=== PATIENT | female | born 2000 | race Caucasian/White ===

== ENCOUNTER 2024-08-29 12:42 | Outpatient (CLI) | payer BC, OTHER ==
[2024-08-29 14:06] LABS: Basophils # (A) 0.1 k/uL (0-0.2); Basophils % (A) 0 %; Eosinophils # (A) 0.2 k/uL (0-0.7); Eosinophils % (A) 1 %; HCT 29.8 % (34.0-46.0); HGB 9.3 gm/dL (11.4-16.0); Hypochromasia Moderate; Lymphocytes # (A) 2.3 k/uL (1.0-4.8); Lymphocytes % (A) 18 %; MCH 23.2 pg (25.0-35.0); MCHC 31.3 g/dL (31.0-37.0); MCV 74.1 fL (80.0-100.0); Mean Platelet Volume 7.4; Microcytosis Slight; Monocytes # (A) 0.5 k/uL (0-1.0); Monocytes % (A) 4 %; Neutrophils % (A) 75 %; Platelet Count 371 k/uL (150-450); Poikilocytosis Slight; RBC 4.02 m/uL (3.80-5.40); RDW 14.7 % (11.5-15.5); WBC 13.3 k/uL (3.8-10.6)
[2024-08-29 14:11] LABS: Appearance,Urine Cloudy (Clear); Bilirubin,Urine Negative (Negative); Blood,Urine Small (Negative); Color,Urine Yellow; Glucose,Urine (UA) Negative (Negative); Ketones,Urine Negative (Negative); Leukocyte Esterase,Urine Negative (Negative); Mucus,Urine Few /hpf; Nitrite,Urine Negative (Negative); Protein,Urine 2+ (Negative); RBC,Urine 1 /hpf (0-5); Specific Gravity,Urine 1.026 (1.001-1.035); Squamous Epithelial Cell,Urine 6 /hpf (0-4); Urobilinogen,Urine <2.0 mg/dL (<2.0); WBC,Urine 4 /hpf (0-5)
[2024-08-29 14:13] LABS: INR 0.8 (<1.2); Prothrombin Time 9.6 sec (10.0-12.5)
[2024-08-29 14:17] LABS: ALT 16 U/L (4-34); AST 22 U/L (14-36); African American GFR (CKD) >90 (>60 ml/min/1.73 sqM); Blood Urea Nitrogen 8 mg/dL (7-17); LDH 226 U/L (120-246); Magnesium 1.7 mg/dL (1.6-2.3); Non-African American GFR(CKD) >90 (>60 ml/min/1.73 sqM); Uric Acid 5.4 mg/dL (3.7-7.4)
[2024-08-29 14:19] LABS: Creatinine,Urine Random 243.3 mg/dL
[2024-08-29 14:21] LABS: Partial Thromboplastin Time 21.4 sec (22.0-30.0)
[2024-08-29 14:26] LABS: Protein/Creatinine Ratio,Urine 1.85
[2024-08-29 14:55] VITALS: BP 159/87; PULSE 90; RESP 18; TEMP 99
--- NOTE | 2024-09-06 16:01 | P.MSEPDOC ---
Presenting Problems - Arrival Data Date of Arrival on Unit: 08/29/24 Time of Arrival on Unit: 12:42 Mode of Transport: Ambulatory - Complaint OB-Reason for Admission/Chief Complaint: Rule Out SROM, PIH Medical History - Information : 1 Para: 0 Term: 0 : 0 Abortions: Spontaneous or Elective: 0 Number of Living Children: 0 - Gestational Age Gestational Age by FANNY (wks/days): 36 Weeks and 6 Days Review of Systems - Review of Systems Constitutional: No problems Breast: No problems ENT: No problems Cardiovascular: No problems Respiratory: No problems Gastrointestinal: No problems Genitourinary: No problems Musculoskeletal: No problems Neurological: No problems Skin: No problems Vital Signs - Temperature Temperature: 99.0 F Temperature Source: Temporal Artery Scan - Pulse Pulse Oximetery Pulse Rate: 90 Pulse Assessment Method: Pulse Oximetry - Respirations Respiratory Rate: 18 Oxygen Delivery Method: Room Air O2 Sat by Pulse Oximetry: 97 - Blood Pressure Right Arm Blood Pressure: 159/87 Blood Pressure Mean: 111 Blood Pressure Source: Automatic Cuff Medical Screen Scoring - Cervical Exam Membranes: Intact - Uterine Contractions Resting: Soft to palpation - Assessment - Baby A Baseline FHR: 125 Heart Rate - NICHD Category: Category I (Normal) NST: Reactive Physician Notification - Physician Notified Physician Notified Date: 08/29/24 Physician Notified Time: 14:32 Physician: Malgorzata Snow New Order Received: Yes (d/c home with home bp monitoring and IOL for Monday.) Maternal Triage Index - Maternal Triage Index Presenting for scheduled procedure w/no complaint: No - Stat/Priority 1 Stat Priority 1: No - Urgent/Priority 2 Urgent Priority 2: Yes Provider Notified: Malgorzata Snow Provider Notified Time: 14:19 Criteria Met for Priority 2: initial bp 159/87, reporting to triage from office with written orders for PIH workup. Disposition - Disposition OB Disposition: Discharge to home Discharge Date: 08/29/24 Discharge Time: 14:38 I agree with the RN Medical Screening Exam: Yes Physician's MSE Comment: I have neither seen nor examined the patient Case reviewed; plan agreed upon as documented in EMR&OBIX.: Yes Diagnosis: GESTATIONAL HTN W/O SIGNIFICANT PROTEINURIA, THIRD TRIMESTER
== END 2024-08-29 14:38 | disposition home or self-care (01) ==
LOC: FBPOP 12:42
PROVIDERS: ATTEND Obstetrics & Gynecology
DX: O13.3 Gestational [pregnancy-induced] hypertension without significant proteinuria, third trimester (principal); Z3A.36 36 weeks gestation of pregnancy
CPT/HCPCS: 59025; 81001; 82565; 82570; 83615; 83735; 84112; 84156; 84450; 84460; 84520; 84550; 85025; 85384; 85610; 85730; 99215

== ENCOUNTER 2024-09-02 06:01 | Inpatient (IN) | payer BC, OTHER ==
[2024-09-02] MEDS ORDERED: miSOPROStoL 200 MCG TAB RECTAL PRN (06:11)
[2024-09-02] MEDS ORDERED: METHYLERGONOVINE 0.2 MG/ML 1 ML AMP IM PRN (06:11)
[2024-09-02] MEDS ORDERED: TRANEXAMIC 1,000 MG/100ML-NACL 1,000 MG in EMPTY BAG 1 BAG IV PRN (06:11)
[2024-09-02] MEDS ORDERED: CARBOPROST TROMETHAMINE 250 MCG/ML 1 ML AMP IM PRN (06:11)
[2024-09-02] MEDS ORDERED: miSOPROStoL 200 MCG TAB PO PRN (06:11)
[2024-09-02] MEDS ORDERED: OXYTOCIN 10 UNIT/ML 1 ML VIAL IM PRN (06:11)
[2024-09-02] MEDS ORDERED: TERBUTALINE 1 MG/ML VIAL SQ PRN (06:11)
[2024-09-02] MEDS ORDERED: LIDOCAINE 0.5% (PF) 5 MG/ML (50 ML SDV) SQ PRN (06:11)
[2024-09-02 07:31] LABS: Basophils # (A) 0.1 k/uL (0-0.2); Basophils % (A) 0 %; Eosinophils # (A) 0.2 k/uL (0-0.7); Eosinophils % (A) 2 %; HCT 30.4 % (34.0-46.0); HGB 9.7 gm/dL (11.4-16.0); Hypochromasia Moderate; Lymphocytes # (A) 2.7 k/uL (1.0-4.8); Lymphocytes % (A) 22 %; MCH 23.5 pg (25.0-35.0); MCHC 31.8 g/dL (31.0-37.0); MCV 73.8 fL (80.0-100.0); Mean Platelet Volume 7.5; Microcytosis Slight; Monocytes # (A) 0.4 k/uL (0-1.0); Monocytes % (A) 3 %; Neutrophils # (A) 8.9 k/uL (1.3-7.7); Neutrophils % (A) 72 %; Platelet Count 365 k/uL (150-450); Poikilocytosis Slight; RBC 4.12 m/uL (3.80-5.40); RDW 14.9 % (11.5-15.5); WBC 12.4 k/uL (3.8-10.6)
[2024-09-02] MEDS: LACTATED RINGERS 1,000 ML IV SCH ×2 (07:39→16:19)
[2024-09-02 08:58] LABS: ALT 17 U/L (4-34); AST 27 U/L (14-36); African American GFR (CKD) >90 (>60 ml/min/1.73 sqM); Blood Urea Nitrogen 9 mg/dL (7-17); LDH 244 U/L (120-246); Non-African American GFR(CKD) >90 (>60 ml/min/1.73 sqM); Uric Acid 5.9 mg/dL (3.7-7.4)
[2024-09-02 09:03] LABS: INR 0.8 (<1.2); Prothrombin Time 9.6 sec (10.0-12.5)
[2024-09-02 09:07] LABS: Partial Thromboplastin Time 21.8 sec (22.0-30.0)
[2024-09-02] MEDS: OXYTOCIN 30 UNITS/500 ML NS 30 UNIT in SALINE 1 500ML.BAG IV SCH (09:14)
--- NOTE | 2024-09-02 09:17 | P.HPOB ---
History of Present Illness H&P Date: 09/02/24 Chief Complaint: Medical induction of labor Ms. Quan is a 24 year old at 37 weeks and 3 days by LMP consistent with 13 week US giving her an FANNY of 09/20/2024 who presents for medical induction of labor for pre-eclampsia without severe features and severe IUGR with AC <1%ile. The fetus has undergone surveillance, which has been reassuring with normal umbilical artery dopplers. The patient did have a chlamydia infection earlier in August that was positive again on test of cure in the office on 08/29/24. She will receive oral Azithromycin treatment today and we will offer her partner expedited treatment. She did have PIH labs done on 08/29 which were significant for proteinuria on the urine P:C. work-up: blood type O positive, antibody screen negative, rubella immune, VDRL non-reactive, HBsAg negative, HIV negative, HCV Ab non-reactive, gonorrhea negative, 1 hour GTT wnl, GBS pending. Past Medical History Additional Past Medical History / Comment(s): pre-e History of Any Multi-Drug Resistant Organisms: None Reported Past Surgical History: No Surgical Hx Reported Additional Past Surgical History / Comment(s): wisdom teeth Past Anesthesia/Blood Transfusion Reactions: No Reported Reaction Past Psychological History: No Psychological Hx Reported Smoking Status: Former smoker, Vaper Additional Past Alcohol Use History / Comment(s): none since she found out she was Past Drug Use History: Marijuana Additional Drug Use History / Comment(s): quite with - Past Family History Mother Family Medical History: No Reported History Medications and Allergies Home Medications Medication Instructions Recorded Confirmed Type Vit No.179/Iron/Folic 1 each PO DAILY 09/02/24 09/02/24 History [ Tablet] Allergies Allergy/AdvReac Type Severity Reaction Status Date / Time No Known Allergies Allergy Verified 09/02/24 06:10 Exam Vital Signs Temp Pulse Resp BP Pulse Ox 09/02/24 06:34 98.1 F 83 18 170/114 95 Intake and Output 09/01/24 09/02/24 09/02/24 22:59 06:59 14:59 Other: Weight 113.398 kg Focused physical exam is performed. This is a healthy-appearing in no apparent distress. Breathing is non-labored. Abdomen is gravid and non-tender. Cervical exam is fingertip/long/high. A sterile speculum is used to place a cooks catheter with 60cc of sterile saline in each balloon. heart tones are reactive and reassuring on NST. Results Result Diagrams: 09/02/24 07:20 09/02/24 07:20 Abnormal Lab Results - Last 24 Hours (Table) 09/02/24 09/02/24 Range/Units 07:20 07:20 WBC 12.4 H (3.8-10.6) k/uL Hgb 9.7 L (11.4-16.0) gm/dL Hct 30.4 L (34.0-46.0) % MCV 73.8 L (80.0-100.0) fL MCH 23.5 L (25.0-35.0) pg Neutrophils # 8.9 H (1.3-7.7) k/uL PT 9.6 L (10.0-12.5) sec APTT 21.8 L (22.0-30.0) sec Fibrinogen 648 H (200-500) mg/dL Assessment and Plan Assessment: 24 year old at 37 weeks and 3 days being medically induced for pre- eclampsia without severe features and severe IUGR Plan: Admit, clear liquid diet, cooks catheter x6-12 hours with low-dose pitocin, PO Azithromycin for chlamyida, Pen G for GBS unknown (decided by patient after counseling). Continuous EFM and tocometer.
[2024-09-02 09:38] LABS: Appearance,Urine Cloudy (Clear); Bilirubin,Urine Negative (Negative); Blood,Urine Small (Negative); Color,Urine Yellow; Glucose,Urine (UA) Negative (Negative); Hyaline Casts,Urine 4 /lpf (0-2); Ketones,Urine Negative (Negative); Leukocyte Esterase,Urine Negative (Negative); Mucus,Urine Few /hpf; Nitrite,Urine Negative (Negative); Protein,Urine 3+ (Negative); RBC,Urine <1 /hpf (0-5); Specific Gravity,Urine 1.023 (1.001-1.035); Squamous Epithelial Cell,Urine 4 /hpf (0-4); Urobilinogen,Urine <2.0 mg/dL (<2.0); WBC,Urine 5 /hpf (0-5)
[2024-09-02 09:51] LABS: Creatinine,Urine Random 187.3 mg/dL
[2024-09-02] MEDS: AZITHROMYCIN 500 MG TAB PO STA (09:51)
[2024-09-02] MEDS: PENICILLIN G POTASSIUM 5,000,000 UNIT in DEXTROSE 5% IN WATER 100 ML IVPB STA (09:51)
[2024-09-02] MEDS: NALBUPHINE 10 MG/ML (10 ML MDV) IV PRN (11:27)
[2024-09-02] MEDS: PENICILLIN G POTASSIUM 2,500,000 UNIT in DEXTROSE 5% IN WATER 100 ML IVPB SCH (14:02)
[2024-09-02] MEDS: LABETALOL 5 MG/ML VIAL MDV IVP STA (16:03)
[2024-09-02] MEDS: MAGNESIUM SULFATE GM 6 GM in SODIUM CHLORIDE 0.9% 100 ML IVPB ONE (16:19)
[2024-09-02] MEDS: MAGNESIUM SULFATE-WATER PMX 20 GM in WATER FOR INJECTION 1 500ML.BAG IV SCH (16:39)
[2024-09-02] MEDS ORDERED: hydrALAZINE HCL 20 MG/ML 1 ML VIAL IVP PRN (17:47)
[2024-09-02] MEDS ORDERED: LABETALOL 5 MG/ML VIAL MDV IVP PRN ×3 (17:47)
[2024-09-03] MEDS: LABETALOL 5 MG/ML VIAL MDV IVP STA (01:20)
[2024-09-03] MEDS ORDERED: SODIUM CHLORIDE 0.9% 250 ML BAG ONE (03:03)
[2024-09-03] MEDS ORDERED: ROPIVACAINE 5 MG/ML 30 ML VIAL ONE (03:03)
[2024-09-03] MEDS ORDERED: fentaNYL (PF) 50 MCG/ML 5 ML AMP ONE (03:03)
[2024-09-03] MEDS ORDERED: OXYTOCIN 10 UNIT/ML 1 ML VIAL IM PRN (07:39)
[2024-09-03] MEDS ORDERED: TRANEXAMIC 1,000 MG/100ML-NACL 1,000 MG in EMPTY BAG 1 BAG IV PRN (07:39)
[2024-09-03] MEDS ORDERED: CARBOPROST TROMETHAMINE 250 MCG/ML 1 ML AMP IM PRN (07:39)
[2024-09-03] MEDS ORDERED: miSOPROStoL 200 MCG TAB PO PRN (07:39)
[2024-09-03] MEDS ORDERED: METHYLERGONOVINE 0.2 MG/ML 1 ML AMP IM PRN (07:39)
[2024-09-03] MEDS: CITRIC ACID-SODIUM CITRATE 15 ML CUP PO ONE (07:45)
[2024-09-03] MEDS ORDERED: fentaNYL (PF) 50 MCG/ML 2 ML AMP ONE (08:04)
[2024-09-03] MEDS ORDERED: KETOROLAC 15 MG/ML 1 ML VIAL ONE (08:04)
[2024-09-03] MEDS ORDERED: OXYTOCIN 10 UNIT/ML 1 ML VIAL ONE (08:04)
[2024-09-03] MEDS ORDERED: NALBUPHINE (ANES) 10 MG/ML - 1 ML AMP ONE (08:04)
[2024-09-03] MEDS ORDERED: ONDANSETRON 4 MG/2 ML VIAL ONE (08:04)
[2024-09-03] MEDS ORDERED: MORPHINE SULFATE (PF) 0.3 MG/0.3 ML SYR ONE (08:04)
--- NOTE | 2024-09-03 09:13 | P.OP ---
Date of Procedure: 09/03/24 Preoperative Diagnosis: 1. Term IUP at 37 weeks 2. Pre-eclampsia with severe features 3. Severe IUGR 4. Failed induction Postoperative Diagnosis: Same Procedure(s) Performed: Primary Lower Transverse Section Implants: None Anesthesia: epidural Surgeon: Malgorzata Snow Marketing Copywriter #1: Edilia Mcdonough Estimated Blood Loss (ml): 500 IV fluids (ml): 800 Urine output (ml): 100 (clear yellow) Pathology: other (placenta) Condition: stable Disposition: floor Indications for Procedure: Ms. Quan is a 24 year old at 37 weeks gestation presenting for induction of labor for IUGR and pre-eclampsia without severe features. A cooks catheter was inserted and left in situ for approximately 8 hours. During induction, the pre-eclampsia did progress to severe features and magnesium sulfate was started. After the cooks catheter came out, the patient was 5/70/-3. AROM was undertaken noting clear amniotic fluid. She made a small amount of cervical change to 5/100/0. However, she failed to have any progress in dilation after this point despite adequate contractions with oxytocin and rupture of membranes for 15 hours. section was recommended for maternal and well-being. The risks, benefits, and alternatives to section were discussed with the patient including risk of bleeding, infection, damage to surrounding structures including bladder/bowels/ureters, and post-operative VTE. The patient understands these risks and desires to proceed with section. Operative Findings: Clear amniotic fluid. Viable male in cephalic presentation. Apgars 9/9. Weight 4#14 ounces (2210 grams). Normal uterus, bilateral fallopian tubes, and ovaries. Description of Procedure: The patient was taken back to the operating room where spinal anesthesia was found to be adequate. Two grams of Ancef were given for infection prophylaxis. Vaginal preparation was done. She was prepared and draped in the dorsal supine position with a leftward tilt. A Pfannenstiel skin incision was made with the scalpel. The incision was carried down to the fascia with a bovie. The fascia was incised and extended laterally with Mendoza scissors. The superior aspect of the fascia was grasped with the Gino clamps. The underlying rectus muscle was dissected off sharply with Mendoza scissors. In a similar fashion, the inferior aspect of the fascia was elevated with Gino clamps and the rectus muscle and pyramidalis were dissected off. Excellent hemostasis was achieved with the bovie. The rectus muscle was in the midline down to the level of the pubic symphysis. Pre-peritoneal fatty tissue was bluntly dissected to expose the peritoneum. The peritoneum was found to be free of adherent bowel and entered sharply with Mendoza scissors. The peritoneal incision was extended superiorly and inferiorly to the bladder reflection with good visualization of the bladder. The bladder blade was inserted and vesicouterine peritoneum was identified. Intraabdominal survey revealed scant, clear peritoneal fluid and the thinned-out lower uterine segment. The vesicouterine peritoneum was opened with scissors and the bladder flap was developed. The bladder blade was repositioned to keep the bladder out of the operative field. The lower uterine segment was incised with a scalpel. Clear amniotic fluid was noted. The uterine incision was extended bluntly with lateral and upward traction. The fetus was in cephalic presentation. The head was elevated out of the pelvis with special attention paid to avoid using the uterine incision as a fulcrum. Gentle fundal pressure was applied once the head was brought into the incision. The infant was delivered with no difficulty and was noted to be crying spontaneously. The mouth and nose were suctioned with a bulb. The cord was clamped and cut. The was handed off to the chiller operator. IV oxytocin was initiated to facilitate uterine contractions. The placenta was delivered intact with manual massage of uterine fundus. The uterus was then exteriorized and the inside of the uterus was gently wiped with a lap sponge to assure complete removal of placental membranes. The uterine incision was closed with 0-Vicryl suture in a running locked fashion. A second imbricating layer was placed with 0-Vicryl. The ovaries and tubes were found to be normal. The uterus, tubes, and ovaries were then gently returned to the abdominal cavity. The abdomen was copiously suction irrigated. The uterine incision was reinspected and excellent hemostasis was noted. The fascial layer was closed with a 0-Vicryl suture. The subcutaneous tissue was reapproximated with 2-0 Plain Gut. Surgicel powder was used in the subcutaneous layer for bleeding. The skin was closed with 4-0 Monocryl in a subcuticular fashion.The patient tolerated the procedure well. All the counts were correct times two. The patient was taken to the recovery room in a stable condition. A physician land surveyor assistant was utilized for the entire procedure due to the need for tissue retraction, dissection of vital structures, prevention and management of blood loss, and reduction in overall operative and anesthesia time as is the standard of care.
[2024-09-03] MEDS ORDERED: NALOXONE 0.4 MG/ML 1 ML VIAL IV PRN (11:08)
[2024-09-03] MEDS ORDERED: METOCLOPRAMIDE 5 MG/ML 2 ML VIAL IVP PRN (11:08)
[2024-09-03] MEDS ORDERED: ONDANSETRON 4 MG/2 ML VIAL IVP PRN (11:08)
[2024-09-03] MEDS ORDERED: ZOLPIDEM 5 MG TAB PO PRN (11:08)
[2024-09-03] MEDS ORDERED: diphenhydrAMINE 25 MG CAP PO PRN (11:08)
[2024-09-03] MEDS ORDERED: diphenhydrAMINE 50 MG/ML 1 ML VIAL IVP PRN ×2 (11:08)
[2024-09-03] MEDS ORDERED: diphenhydrAMINE 50 MG CAP PO PRN (11:08)
[2024-09-03] MEDS: ACETAMINOPHEN TAB 500 MG TAB PO SCH (12:12)
[2024-09-03] MEDS: KETOROLAC 15 MG/ML 1 ML VIAL IVP SCH (16:40)
[2024-09-03] MEDS: SENNOSIDES-DOCUSATE SODIUM 1 EACH TAB PO SCH (21:46)
[2024-09-04] MEDS: LACTATED RINGERS 1,000 ML IV SCH (04:48)
--- NOTE | 2024-09-04 05:32 | P.PN ---
Progress Note - Text Progress Note Date: 09/04/24 24 yo female s/p with epidural administered duramorph Overall doing well VSS Mild pruritis VAS 3-4/10 in severity Ambulating Tolerating diet Patient ok for discharge from anesthetic standpoint
[2024-09-04 07:33] LABS: Basophils # (A) 0.1 k/uL (0-0.2); Basophils % (A) 0 %; Eosinophils # (A) 0.1 k/uL (0-0.7); Eosinophils % (A) 1 %; HCT 23.9 % (34.0-46.0); HGB 7.7 gm/dL (11.4-16.0); Hypochromasia Moderate; Lymphocytes # (A) 2.6 k/uL (1.0-4.8); Lymphocytes % (A) 19 %; MCH 23.9 pg (25.0-35.0); MCHC 32.3 g/dL (31.0-37.0); MCV 73.8 fL (80.0-100.0); Microcytosis Slight; Monocytes # (A) 0.6 k/uL (0-1.0); Monocytes % (A) 5 %; Neutrophils # (A) 9.8 k/uL (1.3-7.7); Neutrophils % (A) 74 %; Platelet Count 337 k/uL (150-450); RBC 3.24 m/uL (3.80-5.40); RDW 15.4 % (11.5-15.5); WBC 13.3 k/uL (3.8-10.6)
--- NOTE | 2024-09-04 08:29 | P.PNOBGPC ---
Subjective - Subjective Principal diagnosis: s/p primary section Interval history: The patient is doing well this morning and had no acute events overnight. She has no complaints this morning. She reports minimal lochia, passing flatus, and eating/drinking without nausea or vomiting. Mag Suflate is now off. Catheter will come out this morning. She is breast-feeding her without difficulty. She denies chest pain, shortness of breathing, fevers, or chills overnight. She denies pain or swelling in the legs. She denies headache, visual disturbances, and RUQ pain. Patient reports: Reports appetite normal, Reports voiding normally, Reports pain well controlled, Reports ambulating normally [place]: doing well, nursing well Objective - Vital Signs Latest vital signs: Vital Signs Temp Pulse Resp BP BP Pulse Ox 09/04/24 08:02 88 149/88 09/04/24 06:00 98.0 F 88 16 145/82 09/04/24 05:00 95 16 142/76 09/04/24 04:00 93 16 137/79 09/04/24 03:00 84 16 144/89 09/04/24 02:00 88 16 123/69 09/04/24 01:00 100 16 126/71 09/04/24 00:00 98.2 F 100 16 132/77 09/03/24 23:00 108 H 16 131/71 98 09/03/24 22:00 98.8 F 100 16 142/79 97 09/03/24 21:00 100 16 138/73 97 09/03/24 20:00 98.0 F 100 16 147/85 97 09/03/24 18:53 93 16 138/85 96 09/03/24 18:00 89 16 136/80 97 09/03/24 17:43 88 16 133/76 96 09/03/24 17:13 97.8 F 95 16 125/71 97 09/03/24 17:12 93 16 126/68 97 09/03/24 14:00 89 16 136/80 97 09/03/24 13:12 99 17 139/80 97 09/03/24 12:00 97.3 F L 102 H 16 143/83 95 09/03/24 11:12 97.4 F L 100 18 150/77 94 L 09/03/24 10:57 101 H 17 148/80 95 09/03/24 10:42 101 H 17 148/80 95 09/03/24 10:27 111 H 17 147/92 94 L 09/03/24 10:12 105 H 17 160/85 94 L 09/03/24 09:57 102 H 17 148/81 95 09/03/24 09:42 102 H 17 162/88 97 09/03/24 09:27 104 H 17 155/85 97 09/03/24 09:12 98.3 F 101 H 17 155/86 97 Intake and Output 09/03/24 09/04/24 09/04/24 22:59 06:59 14:59 Intake Total 900 Output Total 825 900 400 Balance -825 0 -400 Intake: Intake, IV Titration 500 Amount Magnesium Sulfate-Water 500 Pmx 20 gm In Water For Injection 1 500ml.bag @ 2 GM/HR 50 mls/hr IV .Q10H MELANY Rx#:[id number] Oral 400 Output: Urine 825 900 400 Other: Voiding Method Indwelling Catheter - Exam Extremities: Present: normal Abdomen: Present: normal appearance Incision: Present: normal, dry, intact Uterus: Present: normal, firm - Labs Labs: Abnormal Lab Results - Last 24 Hours (Table) 09/04/24 Range/Units 06:20 WBC 13.3 H (3.8-10.6) k/uL RBC 3.24 L (3.80-5.40) m/uL Hgb 7.7 L D (11.4-16.0) gm/dL Hct 23.9 L (34.0-46.0) % MCV 73.8 L (80.0-100.0) fL MCH 23.9 L (25.0-35.0) pg Neutrophils # 9.8 H (1.3-7.7) k/uL Assessment and Plan Assessment: 24 year old now POD#1 s/p primary for failed induction Plan: 1. Post-op. Patient meeting post-operative milestones appropriately. Await spontaneous void today. 2. Pre-E with severe features. s/p 24 hours PP Mag Sulfate. Monitor BPs today. Mild range overnight. 3. Viable male at bedside. Doing well, will need circumcision prior to discharge. Dispo: Anticipate discharge home on POD#3 or #4
[2024-09-04] MEDS: IBUPROFEN 800 MG TAB PO SCH (09:09)
--- NOTE | 2024-09-05 08:15 | P.PNOBGPC ---
Subjective - Subjective Principal diagnosis: s/p primary section Interval history: The patient is doing well this morning. She did have a severe range blood pressure this morning. She denies headache, visual changes, and RUQ pain. She has no complaints this morning. She reports minimal lochia, passing flatus, voiding without difficulty, ambulating, and eating/drinking without nausea or vomiting. She is her without difficulty. She denies chest pain, shortness of breathing, fevers, or chills overnight. She denies pain or swelling in the legs. Patient reports: Reports appetite normal, Reports voiding normally, Reports pain well controlled, Reports ambulating normally : doing well Objective - Vital Signs Latest vital signs: Vital Signs Temp Pulse Resp BP BP Pulse Ox 09/05/24 08:00 98.2 F 83 16 162/110 97 09/04/24 23:52 98.1 F 96 16 143/88 97 09/04/24 20:15 98.4 F 99 16 145/91 97 09/04/24 15:39 97.9 F 90 16 147/93 09/04/24 11:55 98.4 F 76 16 141/98 09/04/24 08:24 92 16 152/92 Intake and Output 09/04/24 09/05/24 09/05/24 22:59 06:59 14:59 Other: # Voids 1 2 - Exam Extremities: Present: normal Abdomen: Present: normal appearance, soft Incision: Present: normal, dry, intact Uterus: Present: normal, firm Assessment and Plan Assessment: 24 year old now POD#2 s/p primary for failed induction Plan: 1. Post-op. Patient meeting post-operative milestones appropriately. Await spontaneous void today. 2. Pre-E with severe features. s/p 24 hours PP Mag Sulfate. BPs mild to severe range overnight. Begin Procardia XL 30mg daily this morning. 3. Viable male infant at bedside. Doing well, will need circumcision prior to discharge. Dispo: Anticipate discharge home on POD#3 or #4
[2024-09-05] MEDS: NIFEdipine XL 30 MG TAB.ER.24 PO SCH (09:01)
[2024-09-05] MEDS: FERROUS SULFATE 325 MG TAB PO SCH (12:06)
[2024-09-05] MEDS: LABETALOL 200 MG TAB PO SCH (13:40)
[2024-09-06 08:54] VITALS: TEMP 98.1
--- NOTE | 2024-09-06 15:38 | P.DS ---
Providers Date of admission: 09/02/24 06:01 Expected date of discharge: 09/06/24 Attending physician: Malgorzata Snow MD Primary care physician: Stated None Hospital Course: Ms. Quan is a 24 year old now POD#3 s/p 1LTCS for failed induction of labor with an IUGR fetus at 37 weeks and pre-eclampsia with severe features. Her was uncomplicated, for further details please refer to the operative report. The patient did receive intrapartum and Magensium Sulfate for seizure prophylaxis. The patient did ultimately require PO antihypertensives and is currently stable on a regimen of Procardia XL 30mg da pam and Labetalol 200mg BID. She is asymptomatic and denies headache, visual changes, or RUQ pain. The patient is doing well this morning and had no acute events overnight. She has no complaints this morning. She reports minimal lochia, passing flatus, voiding without difficulty, ambulating, and eating/drinking without nausea or vomiting. Infant doing well at bedside, s/p circumcision. She denies chest pain, shortness of breathing, fevers, or chills overnight. She denies pain or swelling in the legs. Postoperative restrictions are reviewed with the patient including pelvic rest for 6 weeks, no lifting heavier than 15 pounds for 6 weeks. The patient is encouraged to call the office if she experiences any heavy bleeding, foul-smelling discharge, breast complaints, or any if she has any other concerns. She will follow up in the office with in 1 week for blood pressure check. All questions are answered. Patient Condition at Discharge: Good Plan - Discharge Summary New Discharge Prescriptions: New Acetaminophen Tab [Tylenol] 650 mg PO Q6H PRN #30 tab PRN Reason: Mild Pain (Scale 1 To 3) NIFEdipine XL [Procardia Xl] 30 mg PO DAILY #90 tab Ibuprofen [Motrin] 600 mg PO Q6HR PRN #30 tab PRN Reason: Mild Pain (Scale 1 To 3) Labetalol [Trandate] 200 mg PO BID #180 tablet No Action Vit No.179/Iron/Folic [ Tablet] 1 each PO DAILY Discharge Medication List Vit No.179/Iron/Folic [ Tablet] 1 each PO DAILY 09/02/24 [History] Acetaminophen Tab [Tylenol] 650 mg PO Q6H PRN #30 tab 09/06/24 [Rx] Ibuprofen [Motrin] 600 mg PO Q6HR PRN #30 tab 09/06/24 [Rx] Labetalol [Trandate] 200 mg PO BID #180 tablet 09/06/24 [Rx] NIFEdipine XL [Procardia Xl] 30 mg PO DAILY #90 tab 09/06/24 [Rx] Follow up Appointment(s)/Referral(s): Malgorzata Snow MD [STAFF PHYSICIAN] - 10/14/24 1:45 pm (Blood pressure check in 1 week C/S Appointment 09-12-2024 at 10am) Activity/Diet/Wound Care/Special Instructions: Instructions 1. Do not begin any exercise program for 3 weeks. 2. Do not resume sexual relations for 6 weeks or longer if uncomfortable. 3. You may take tub baths or showers at any time. 4. You may use tampons if desired after 6 weeks. 5. Keep any areas repaired with stitches clean and dry. 6. If you are not nursing, wear a good fitting, supportive bra during the day and limit fluid intake for at least 1 week to prevent breast engorgement. 7. Call the office, , within the next week to make appointment for your 6 week checkup if it has not already been made. 8. Report any of the following occurrences to the doctor promptly: a. Heavy, excessive bleeding b. Chills, fever c. Burning or frequency of urination d. Pain or redness and breasts if nursing e. Increasing pain or swelling of vulva (stitches). In addition to the above instructions, the following additional should be followed: 1. No heavy lifting or straining (exercising) until after 6 week checkup. 2. Keep abdominal incision clean and dry: You may wear a dressing if more comfortable. 3. Make office appointment for 2 weeks after delivery date. Discharge Disposition: HOME SELF-CARE
[2024-09-06 17:53] VITALS: BP 142/91; PULSE 78; RESP 18
--- NOTE | 2024-09-09 12:51 | CDI ---
Documentation Clarification Form Date: 09/09/2024 12:29:00 PM From: Marsha Brady Phone: Admit Date: 09/02/2024 06:01:00 AM Patient Name: Mercedes Quan Visit Number: [id number] Discharge Date: 09/06/2024 05:00:00 PM ATTENTION: The Clinical Documentation Specialists (CDI) and [facility] Coding Staff appreciate your assistance in clarifying documentation. Please respond to the clarification below the line at the bottom and electronically sign. The CDI & [facility] Coding staff will review the response and follow-up if needed. Please note: Queries are made part of the Legal Health Record. If you have any questions, please contact the author of this message via ITS. Doctor/Provider: Malgorzata Snow There is conflicting documentation: Pre-eclampsia withoutsevere features per H&P and PRx Note 09/03 Pre-eclampsia with severe features per Procedure Note 09/03 and DCS 09/06 Clarification is requested. History/Risk Factors: 24yo F, Pre-eclampsia @ 37wks, severe IUGR with AC <1%, failed induction, former smoker Clinical Indicators: Pt deniesheadache,visual disturbances, painorswelling in the legs, orRUQ pain. BP: 09/02 06:64 170/114 09/04/2507:02 149/88 09/04/2505:00 145/82 09/04/2504:00 142/76 09/04/2503:00 137/79 09/04/2502:00 144/89 09/04/2501:00 123/69 09/04/2500:00 126/71 09/04/2499:00 132/77 09/03/2522:00 131/71 09/03/2521:00 142/79 09/03/2520:00 138/73 09/03/2519:00 147/85 09/03/2517:53 138/85 09/03/2517:00 136/80 09/03/2516:43 133/76 09/03/2516:13 125/71 09/03/2516:12 126/68 09/03/2513:00 136/80 09/03/2512:12 139/80 09/03/2511:00 143/83 09/03/2510:12 150/77 09/03/2509:57 148/80 09/03/2509:42 148/80 09/03/2509:27 147/92 09/03/2508:57 148/81 09/03/2508:42 162/88 09/03/2508:27 155/85 09/03/2508:12 155/86 Treatment: PrimaryLTCS. S/p24 hours PP Mag Sulfate. BPs mild to severe range overnight. Begin Procardia XL 30mg daily this morning. Can you please clarify severity of pre-eclampsia? [ ] Pre-eclampsia withoutsevere features [ X ] Pre-eclampsia withsevere features as evidenced by (please specify) - severe range blood pressures that developed in labor. The patient was induced for pre-eclampsia WITHOUT severe features and she developed severe features during labor. Therefore, the procedure note lists her UPDATED diagnosis. Nothing needs to be changed. [ ] Other, please specify [ ] Unable to determine (Template Last Revised: October 2020) MTDD
== END 2024-09-06 17:00 | disposition home or self-care (01) | DRG 788 ==
LOC: 4FBP 06:01
PROVIDERS: ADMIT Obstetrics & Gynecology; ATTEND Obstetrics & Gynecology
PROC: 0U7C7ZZ Dilation of Cervix, Via Natural or Artificial Opening (ICD-10-PCS; 2024-09-03)
PROC: 10907ZC Drainage of Amniotic Fluid, Therapeutic from Products of Conception, Via Natural or Artificial Opening (ICD-10-PCS; 2024-09-03)
PROC: 3E033VJ Introduction of Other Hormone into Peripheral Vein, Percutaneous Approach (ICD-10-PCS; 2024-09-03)
PROC: 10D00Z1 Extraction of Products of Conception, Low, Open Approach (ICD-10-PCS; principal; 2024-09-03 08:00)
DX: O14.14 Severe pre-eclampsia complicating childbirth (principal); O36.5930 Maternal care for other known or suspected poor fetal growth, third trimester, not applicable or unspecified; L29.9 Pruritus, unspecified; O61.9 Failed induction of labor, unspecified; Z37.0 Single live birth; Z3A.37 37 weeks gestation of pregnancy; Z87.891 Personal history of nicotine dependence
CPT/HCPCS: 81001; 82565; 82570; 83615; 84156; 84450; 84460; 84520; 84550; 85025; 85384; 85610; 85730; 86850; 86900; 86901; 88307